=== PATIENT | male | born 1965 | race Caucasian/White ===

== ENCOUNTER 2016-11-25 15:28 | Emergency (ER) | payer MEDICAID ==
[~2016-11-25] VITALS: Ht 182.9 cm; Wt 68.0 kg
[~2016-11-25 15:28] MED LIST: SPIRIVA18 MCG INH; SUBOXONE 8 MG-1 EACH SL; Sodium Chloride 500ML 500 ML IV ONE
[2016-11-25] MEDS ORDERED: Solu-MEDROL 125mg Inj IVP ONE (15:30)
[2016-11-25] MEDS: Albuterol ud Inhalation HHN SCH ×2 (15:33→16:41)
[2016-11-25] MEDS: Ipratropium 0.02% Inh Soln 2.5ml UD HHN SCH ×2 (15:33→16:41)
[2016-11-25 15:46] VITALS: BP 129/96
[2016-11-25 15:47] LABS: BASOPHILS % (AUTO) 1.5 % (0.0-2.0); EOSINOPHILS % (AUTO) 8.5 % (0.0-3.0); LYMPHOCYTES % (AUTO) 37.9 % (20.0-45.0); MEAN CORPUSCULAR HEMOGLOBIN 29.5 PG (27.0-31.0); MEAN CORPUSCULAR HGB CONC 32.3 G/DL (32.0-36.0); MEAN CORPUSCULAR VOLUME 92 FL (80-99); MEAN PLATELET VOLUME 6.2 FL (6.5-10.1); MONOCYTES % (AUTO) 8.3 % (1.0-10.0); NEUTROPHILS % (AUTO) 43.8 % (45.0-75.0); PLATELET COUNT 238 K/UL (150-450); RED CELL DISTRIBUTION WIDTH 12.1 % (11.6-14.8); WHITE BLOOD COUNT 9.7 K/UL (4.8-10.8)
[2016-11-25 16:05] LABS: ALANINE AMINOTRANSFERASE 23 U/L (3-41); ALBUMIN/GLOBULIN RATIO 1.3 (1.0-2.7); ANION GAP 12 (5-15); ASPARTATE AMINO TRANSFERASE 35 U/L (5-40); CALCIUM 8.8 mg/dL (8.6-10.2); CARBON DIOXIDE 28 mEQ/L (20-30); CHLORIDE 98 mEQ/L (98-107); CREATININE 0.7 mg/dL (0.7-1.2); GLOMERULAR FILTRATION RATE > 60 mL/min (>60); HEMOLYSIS 4; POTASSIUM 3.6 mEQ/L (3.4-4.9); SODIUM 138 mEQ/L (135-145); TOTAL PROTEIN 6.7 g/dL (6.6-8.7)
[2016-11-25 16:18] LABS: TROPONIN I < 0.30 ng/mL (<=0.30)
[2016-11-25] MEDS ORDERED: PREDNISONE20 MG ORAL (16:27)
[2016-11-25] MEDS ORDERED: AMOXICILLIN500 MG ORAL (16:27)
[2016-11-25 16:30] LABS: BILIRUBIN,DIRECT 0.2 mg/dL (0.1-0.3)
[2016-11-25 16:44] VITALS: BP 120/87
[2016-11-25 16:48] VITALS: BP 120/87
--- NOTE | 2016-11-25 17:08 | Diagnostic Imaging Report ---
Indication: Dyspnea Comparison: None A single view chest radiograph was obtained. Findings: Lungs are hyperexpanded. No infiltrate is seen. Bones are osteopenic. Heart size is within normal limits. Impression: No acute findings
--- NOTE | 2016-11-25 22:42 | Emergency Room Report ---
History of Present Illness General Chief Complaint: Upper Respiratory Illness Source: Patient Present Illness HPI 51-year-old male presents ED for shortness of breath. Per EMS patient has been wheezing since last night. Patient has history of COPD. Patient was given breathing treatment states he feels a little better. Denies fevers or chills. Denies cough. States he recently quit smoking. Not on home O2. States that he was working in the garage with a lot of dust which likely triggered his COPD. Denies fevers or chills. Denies chest pain. No other aggravating relieving factors. Denies any other associated symptoms Allergies: Coded Allergies: No Known Allergies (Unverified , 11/25/16) Patient History Past Medical History: COPD Past Surgical History: none Pertinent Family History: none Social History: Denies: smoking, alcohol use, drug use Immunizations: UTD Reviewed Nursing Documentation: PMH: Agreed, PSxH: Agreed Nursing Documentation-PMH Past Medical History: No History, Except For Hx COPD: Yes Review of Systems All Other Systems: negative except mentioned in HPI Physical Exam Vital Signs Date Time Temp Pulse Resp B/P (MAP) Pulse Ox O2 Delivery O2 Flow Rate FiO2 11/25/16 15:15 97.0 113 27 164/97 99 Nasal Cannula 2.0 Sp02 EP Interpretation: reviewed, normal General Appearance: no apparent distress, alert, GCS 15, non-toxic Head: normocephalic, atraumatic Eyes: bilateral eye normal inspection, bilateral eye PERRL ENT: hearing grossly normal, normal pharynx, no angioedema, normal voice Neck: full range of motion, supple/symm/no masses Respiratory: speaking full sentences, wheezing Cardiovascular #1: regular rate, rhythm, no edema Cardiovascular #2: 2+ carotid (R), 2+ carotid (L), 2+ radial (R), 2+ radial (L) , 2+ dorsalis pedis (R), 2+ dorsalis pedis (L) Gastrointestinal: normal bowel sounds, non tender, soft, non-distended, no guarding, no rebound Rectal: deferred Genitourinary: normal inspection, no CVA tenderness Musculoskeletal: back normal, gait/station normal, normal range of motion, non- tender Neurologic: alert, oriented x3, responsive, motor strength/tone normal, sensory intact, speech normal Psychiatric: judgement/insight normal, memory normal, mood/affect normal, no suicidal/homicidal ideation Reflexes: 3+ bicep (R), 3+ bicep (L), 3+ tricep (R), 3+ tricep (L), 3+ knee (R) , 3+ knee (L) Skin: normal color, no rash, warm/dry, well hydrated Lymphatic: no adenopathy Medical Decision Making Diagnostic Impression: Primary Impression: COPD exacerbation ER Course Hospital Course 51-year-old presents ED complaining of shortness of breath/wheezing Differential diagnoses include: URI, bronchitis, asthma/COPD, pneumonia Clinical course Patient placed on stretcher. After initial history, physical exam reveals an elderly male in no acute distress. Bilateral TM unremarkable. No pharyngeal erythema. No tonsillar exudates. No lymphadenopathy. Reduced breath sounds and wheezing I ordered labs, IV fluids, EKG, chest x-ray, and pleasant treatment, Solu-Medrol Labs reviewed-no leukocytosis noted, hemoglobin/hematocrit stable, electrolytes okay EKG - NSR, no acute ischemic changes interpreted by me Chest x-ray shows hyperinflated lungs On reassessment patient states he feels better. Patient can be safely discharged to home with outpatient therapy. Patient agrees with plan. Diagnosis - COPD exacerbation Stable and discharged home with prescriptions for amoxicillin, prednisone. Instructed to followup with PMD. Return to ED if symptoms recur or worsen Labs Test 11/25/16 15:35 White Blood Count 9.7 K/UL (4.8-10.8) Red Blood Count 4.30 M/UL (4.70-6.10) Hemoglobin 12.7 G/DL (14.2-18.0) Hematocrit 39.3 % (42.0-52.0) Mean Corpuscular Volume 92 FL (80-99) Mean Corpuscular Hemoglobin 29.5 PG (27.0-31.0) Mean Corpuscular Hemoglobin Concent 32.3 G/DL (32.0-36.0) Red Cell Distribution Width 12.1 % (11.6-14.8) Platelet Count 238 K/UL (150-450) Mean Platelet Volume 6.2 FL (6.5-10.1) Neutrophils (%) (Auto) 43.8 % (45.0-75.0) Lymphocytes (%) (Auto) 37.9 % (20.0-45.0) Monocytes (%) (Auto) 8.3 % (1.0-10.0) Eosinophils (%) (Auto) 8.5 % (0.0-3.0) Basophils (%) (Auto) 1.5 % (0.0-2.0) Sodium Level 138 mEQ/L (135-145) Potassium Level 3.6 mEQ/L (3.4-4.9) Chloride Level 98 mEQ/L (98-107) Carbon Dioxide Level 28 mEQ/L (20-30) Anion Gap 12 (5-15) Blood Urea Nitrogen 6 mg/dL (7-23) Creatinine 0.7 mg/dL (0.7-1.2) Estimat Glomerular Filtration Rate > 60 mL/min (>60) Glucose Level 95 mg/dL (74-106) Calcium Level 8.8 mg/dL (8.6-10.2) Total Bilirubin 1.4 mg/dL (0.0-1.2) Direct Bilirubin 0.2 mg/dL (0.1-0.3) Aspartate Amino Transf (AST/SGOT) 35 U/L (5-40) Alanine Aminotransferase (ALT/SGPT) 23 U/L (3-41) Alkaline Phosphatase 66 U/L (40-129) Total Creatine Kinase 307 U/L (38-174) Creatine Kinase MB 3.0 ng/mL (< 6.7) Creatine Kinase MB Relative Index 0.9 Troponin I < 0.30 ng/mL (<=0.30) Pro-B-Type Natriuretic Peptide 67 pg/mL (0-125) Total Protein 6.7 g/dL (6.6-8.7) Albumin 3.9 g/dL (3.5-5.2) Globulin 2.8 g/dL Albumin/Globulin Ratio 1.3 (1.0-2.7) EKG Diagnostic Results Rate: normal Rhythm: NSR ST Segments: no acute changes ASA given to the pt in ED: No Rhythm Strip Diag. Results EP Interpretation: yes Rhythm: NSR, no PVC's, no ectopy Chest X-Ray Diagnostic Results Chest X-Ray Diagnostic Results : Chest X-Ray Ordered: Yes # of Views/Limited/Complete: 1 View Indication: Shortness of Breath EP Interpretation: Yes Interpretation: no consolidation, no effusion, no pneumothorax, no acute cardiopulmonary disease Impression: Other - hyperinflated lungs. copd Electronically Signed by: Electronically signed by Titi Patel MD Last Vital Signs Date Time Temp Pulse Resp B/P (MAP) Pulse Ox O2 Delivery O2 Flow Rate FiO2 11/25/16 16:48 97.0 90 17 120/87 97 Room Air 2.0 Status: improved Disposition: HOME, SELF-CARE Condition: Stable Scripts Amoxicillin* (AMOXIL*) 500 Mg Capsule 500 MG ORAL THREE TIMES A DAY, #21 CAP Prov: TITI PATEL M.D. 11/25/16 Prednisone* (PREDNISONE*) 20 Mg Tablet 40 MG ORAL DAILY, #10 TAB Prov: TITI PATEL M.D. 11/25/16 Referrals: NOT CHOSEN IPA/,REFERRING (PCP) Patient Instructions: Chronic Obstructive Pulmonary Disease Exacerbation, Easy- to-Read TITI PATEL M.D. Nov 25, 2016 22:42
--- NOTE | 2016-12-02 23:29 | Cardiology Report ---
APPROVED REPORT EKG Measurement Heart [id number] Sinus tachycardia Possible Anterior infarct, age undetermined Abnormal ECG
== END 2016-11-25 17:34 | disposition home or self-care (01) ==
LOC: EDBD 15:28 → EMR 15:43
DX: J44.1 Chronic obstructive pulmonary disease with (acute) exacerbation (principal)
CPT/HCPCS: 36415; 71010; 80053; 82248; 82550; 82553; 83880; 84484; 85025; 93005; 94640; 96361; 96374; 99284; J2930; J7040

== ENCOUNTER 2016-12-10 13:59 | Inpatient (IN) | payer MEDICAID ==
[~2016-12-10] VITALS: Ht 182.9 cm; Wt 61.7 kg
[~2016-12-10 13:59] MED LIST changes: +AMOXICILLIN500 MG ORAL; +PREDNISONE20 MG ORAL; -Sodium Chloride 500ML 500 ML IV ONE
[2016-12-10 14:10] VITALS: BP 127/76
[2016-12-10] MEDS: Albuterol ud Inhalation HHN SCH ×3 (14:40→15:06)
[2016-12-10] MEDS: Ipratropium 0.02% Inh Soln 2.5ml UD HHN SCH ×3 (14:40→15:06)
--- NOTE | 2016-12-10 15:33 | Emergency Room Report ---
History of Present Illness General Chief Complaint: Dyspnea/Respdistress Source: Patient, Medical Record Present Illness HPI 51-year-old male presents ED for evaluation. Patient states starting today he feels short of breath and wheezing. Has history of COPD. Uses inhaler at home and states he feels somewhat better. Admits to dry cough. Denies fevers or chills. Denies chest pain. Denies sick contacts or recent travel. No other aggravating relieving factors. Denies any other associated symptoms Allergies: Coded Allergies: No Known Allergies (Unverified , 11/25/16) Patient History Past Medical History: COPD Past Surgical History: none Pertinent Family History: none Social History: Denies: smoking, alcohol use, drug use Immunizations: UTD Reviewed Nursing Documentation: PMH: Agreed, PSxH: Agreed Nursing Documentation-PMH Past Medical History: No History, Except For Hx COPD: Yes Review of Systems All Other Systems: negative except mentioned in HPI Physical Exam Vital Signs Date Time Temp Pulse Resp B/P (MAP) Pulse Ox O2 Delivery O2 Flow Rate FiO2 12/10/16 14:06 97.9 92 18 127/76 94 Room Air Sp02 EP Interpretation: reviewed, normal General Appearance: no apparent distress, alert, GCS 15, non-toxic Head: normocephalic, atraumatic Eyes: bilateral eye normal inspection, bilateral eye PERRL ENT: hearing grossly normal, normal pharynx, no angioedema, normal voice Neck: full range of motion, supple/symm/no masses Respiratory: chest non-tender, normal breath sounds, speaking full sentences, wheezing Cardiovascular #1: regular rate, rhythm, no edema Cardiovascular #2: 2+ carotid (R), 2+ carotid (L), 2+ radial (R), 2+ radial (L) , 2+ dorsalis pedis (R), 2+ dorsalis pedis (L) Gastrointestinal: normal bowel sounds, non tender, soft, non-distended, no guarding, no rebound Rectal: deferred Genitourinary: normal inspection, no CVA tenderness Musculoskeletal: back normal, gait/station normal, normal range of motion, non- tender Neurologic: alert, oriented x3, responsive, motor strength/tone normal, sensory intact, speech normal Psychiatric: judgement/insight normal, memory normal, mood/affect normal, no suicidal/homicidal ideation Reflexes: 3+ bicep (R), 3+ bicep (L), 3+ tricep (R), 3+ tricep (L), 3+ knee (R) , 3+ knee (L) Skin: normal color, no rash, warm/dry, well hydrated Lymphatic: no adenopathy Medical Decision Making Diagnostic Impression: Primary Impression: COPD exacerbation ER Course Hospital Course 51-year-old M presenting to ED with SOB. h/o COPD Differential diagnoses include: Pneumonia, CHF exacerbation, pneumothorax, fluid overload Clinical course Patient placed on stretcher. On dog daycare provider with stable vitals. After initial history and physical, I ordered nebulizer treatments. I ordered labs, IV fluids, EKG, chest x-ray, blood cultures, UA. Labs - no leukocytosis, hb/hct stable, electrolytes ok, trop negative CXR - hyperinflated lungs. no infiltrates EKG - NSR no acute ischemic changes interpreted by me After multiple breathing treatments patient continues to feel short of breath. abx given Case discussed with Dr. Mayer and he agreed to the patient to his service for further care and support I feel this is a highly complex case requiring extensive working including EKG/ Rhythm strip, Xray/CT/US, Blood/urine lab work, repeat exams while in ED, and administration of strong opiates/narcotics for pain control, admission to hospital or close patient follow up. Diagnosis - COPD exacerbation Patient admitted to telemetry in serious condition Labs Test 12/10/16 16:20 White Blood Count 9.6 K/UL (4.8-10.8) Red Blood Count 4.38 M/UL (4.70-6.10) Hemoglobin 13.0 G/DL (14.2-18.0) Hematocrit 41.4 % (42.0-52.0) Mean Corpuscular Volume 95 FL (80-99) Mean Corpuscular Hemoglobin 29.7 PG (27.0-31.0) Mean Corpuscular Hemoglobin Concent 31.4 G/DL (32.0-36.0) Red Cell Distribution Width 12.7 % (11.6-14.8) Platelet Count 293 K/UL (150-450) Mean Platelet Volume 5.9 FL (6.5-10.1) Neutrophils (%) (Auto) 53.5 % (45.0-75.0) Lymphocytes (%) (Auto) 23.3 % (20.0-45.0) Monocytes (%) (Auto) 8.0 % (1.0-10.0) Eosinophils (%) (Auto) 14.4 % (0.0-3.0) Basophils (%) (Auto) 0.9 % (0.0-2.0) Troponin I 0.001 ng/mL (0.000-0.056) EKG Diagnostic Results Rate: normal Rhythm: NSR ST Segments: no acute changes ASA given to the pt in ED: No Rhythm Strip Diag. Results EP Interpretation: yes Rhythm: NSR, no PVC's, no ectopy Chest X-Ray Diagnostic Results Chest X-Ray Diagnostic Results : Chest X-Ray Ordered: Yes # of Views/Limited/Complete: 1 View Indication: Shortness of Breath EP Interpretation: Yes Interpretation: no consolidation, no effusion, no pneumothorax, no acute cardiopulmonary disease, other - hyperinflated lungs Impression: Other - COPD Electronically Signed by: Electronically signed by Titi Patel MD Last Vital Signs Date Time Temp Pulse Resp B/P (MAP) Pulse Ox O2 Delivery O2 Flow Rate FiO2 12/10/16 15:25 83 20 100 Room Air 12/10/16 14:06 97.9 127/76 Status: improved Disposition: ADMITTED INPATIENT Condition: Serious TITI PATEL M.D. Dec 10, 2016 15:33
[2016-12-10] MEDS ORDERED: Albuterol ud Inhalation HHN ONE (15:45)
[2016-12-10] MEDS ORDERED: Ipratropium 0.02% Inh Soln 2.5ml UD HHN ONE (15:45)
[2016-12-10 16:00] VITALS: BP 119/79
[2016-12-10 16:47] LABS: BASOPHILS % (AUTO) 0.9 % (0.0-2.0); EOSINOPHILS % (AUTO) 14.4 % (0.0-3.0); LYMPHOCYTES % (AUTO) 23.3 % (20.0-45.0); MEAN CORPUSCULAR HEMOGLOBIN 29.7 PG (27.0-31.0); MEAN CORPUSCULAR HGB CONC 31.4 G/DL (32.0-36.0); MEAN CORPUSCULAR VOLUME 95 FL (80-99); MEAN PLATELET VOLUME 5.9 FL (6.5-10.1); NEUTROPHILS % (AUTO) 53.5 % (45.0-75.0); PLATELET COUNT 293 K/UL (150-450); RED BLOOD COUNT 4.38 M/UL (4.70-6.10); RED CELL DISTRIBUTION WIDTH 12.7 % (11.6-14.8); WHITE BLOOD COUNT 9.6 K/UL (4.8-10.8)
[2016-12-10] MEDS ORDERED: cefTRIAXone 1 GM in NS 55 ML IVPB ONE (17:00)
[2016-12-10] MEDS ORDERED: Azithromycin 500 MG in NS 275 ML IV ONE (17:00)
[2016-12-10] MEDS ORDERED: NKM (17:29)
[2016-12-10] MEDS ORDERED: DALIRESP500 MCG PO (17:34)
[2016-12-10] MEDS ORDERED: LORATADINE10 M1 PO (17:34)
[2016-12-10] MEDS ORDERED: Azithromycin 500mg Inj IV ONE (17:51)
[2016-12-10 17:54] LABS: ALANINE AMINOTRANSFERASE 19 U/L (12-78); ANION GAP 8 mmol/L (5-15); ASPARTATE AMINO TRANSFERASE 29 U/L (15-37); CALCIUM 8.8 MG/DL (8.5-10.1); CARBON DIOXIDE 29 MMOL/L (21-32); CHLORIDE 101 MMOL/L (98-107); CKMB 3.2 NG/ML (0.0-3.6); CREATININE 0.8 MG/DL (0.55-1.30); GLOMERULAR FILTRATION RATE > 60 mL/min (>60); POTASSIUM 3.8 MMOL/L (3.5-5.1); SODIUM 138 MMOL/L (136-145); TOTAL PROTEIN 6.9 G/DL (6.4-8.2)
[2016-12-10 18:00] VITALS: BP 109/76
--- NOTE | 2016-12-10 18:13 | Diagnostic Imaging Report ---
Indication: SOB Technique: One view of the chest Comparison: 11/25/2016 Findings: The lungs are hyperinflated, consistent with COPD. There are upper lobe bullous changes as well. The heart size is normal. No acute infiltrates or effusions, or congestion. No significant interim change Impression: COPD. No definite acute process
[2016-12-10 18:22] VITALS: BP 148/88
[2016-12-10 18:56] LABS: APPEARANCE,URINE CLEAR; KETONES,URINE NEGATIVE (NEGATIVE); LEUKOCYTE ESTERASE ,URINE NEGATIVE (NEGATIVE); NITRITE,URINE NEGATIVE (NEGATIVE); PH,URINE 7 (4.5-8.0); PROTEIN,URINE NEGATIVE (NEGATIVE); UROBILINOGEN,URINE NORMAL MG/DL (0.0-1.0)
[2016-12-10 20:00] VITALS: BP 122/82
[2016-12-10] MEDS: Albuterol/Ipratropium 3ml neb HHN SCH (23:07)
[2016-12-10] MEDS ORDERED: NICODERM CQ1 EAC1 TD (23:48)
[2016-12-11] VITALS: BP 117/79
[2016-12-11] MEDS: Albuterol/Ipratropium 3ml neb HHN SCH ×6 (03:10→23:00)
[2016-12-11 04:00] VITALS: BP 140/86
[2016-12-11 08:16] VITALS: BP 141/88
[2016-12-11] MEDS: Solu-MEDROL 125mg Inj IVP SCH ×2 (09:00→19:57)
[2016-12-11] MEDS: Heparin 5000 units/ml inj SUBQ SCH ×2 (09:00→20:02)
[2016-12-11] MEDS: Azithromycin 250mg tab ORAL SCH (09:00)
[2016-12-11 12:00] VITALS: BP 124/82
[2016-12-11 16:00] VITALS: BP 116/78
[2016-12-11 16:51] LABS: APPEARANCE,URINE CLEAR; KETONES,URINE NEGATIVE (NEGATIVE); LEUKOCYTE ESTERASE ,URINE NEGATIVE (NEGATIVE); NITRITE,URINE NEGATIVE (NEGATIVE); PH,URINE 7 (4.5-8.0); PROTEIN,URINE NEGATIVE (NEGATIVE); UROBILINOGEN,URINE NORMAL MG/DL (0.0-1.0)
[2016-12-11] MEDS ORDERED: cefTRIAXone 1 GM in D5W 55 ML IVPB SCH (18:00)
--- NOTE | 2016-12-11 18:45 | Progress Note ---
DATE: 12/11/2016 MEDICINE PROGRESS NOTE SUBJECTIVE: The patient has less shortness of breath and congestion, but is not at baseline. He gets short of breath walking around the room. No fevers. No chills. OBJECTIVE: VITAL SIGNS: Blood pressure 124/82, oxygen saturation on room air 94% to 97%, pulse 80, and respiratory rate 20. Monitored sinus rhythm. LUNGS: Diminished breath sounds and rhonchi, left greater than right. Few expiratory wheezes. CARDIOVASCULAR: Regular rhythm and rate. Normal S1 and S2. ABDOMEN: Soft. EXTREMITIES: No edema. IMPRESSION: 1. Chronic obstructive pulmonary disease exacerbation. 2. Acute bronchospasm. 3. Chronic bronchitis. 4. History of nicotine abuse, quit six weeks ago. PLAN: 1. Nicotine patch. 2. Continue steroids intravenously, inhaled bronchodilators, and empiric antibiotics. 3. Not stable for outpatient care yet. 4. Repeat chest x-ray will be obtained with two views . Clinton Mayer M.D. DR: ANDREAS JOB#: [id number] CC:
--- NOTE | 2016-12-11 18:45 | History and Physical Report ---
DATE OF ADMISSION: 12/10/2016 REASON FOR ADMISSION: COPD exacerbation. HISTORY OF PRESENT ILLNESS: This is a 51-year-old white male with a longstanding history of nicotine abuse. He only quit about six weeks ago and has been on a NicoDerm patch. He has had one hospitalization overnight for chronic obstructive pulmonary disease in the past. He recently completed a steroid taper and oral course of antibiotics. Last evening, he became increasingly congested, short of breath, and was coughing again. He uses inhalers, but did not improve adequately and came to the emergency room. He was noted to have significant bronchospasm and hospitalization initiated. PAST MEDICAL HISTORY: Otherwise unremarkable. MEDICATIONS: Prior to admission, reviewed and reconciled. ALLERGIES: None. SOCIAL HISTORY: A 60+ pack year smoker. No alcohol or substance abuse. REVIEW OF SYSTEMS: Recently had an abnormal urine study suggestive of chlamydia and doctor requested repeat study. No urinary symptoms at this time. All systems are otherwise negative. PHYSICAL EXAMINATION: VITAL SIGNS: Afebrile. Blood pressure 127/76, pulse 92, respirations 18, and oxygen saturation on room air 94%. HEENT: Conjunctivae are pink. Oropharynx clear. NECK: Supple. LUNGS: Coarse breath sounds, diminished at the left. Few expiratory wheezing noted as well. No accessory muscle use. CARDIAC: Regular. Normal S1 and S2 with no murmur. ABDOMEN: Soft and nontender. EXTREMITIES: Without edema, clubbing, or cyanosis. LABORATORY AND DIAGNOSTIC DATA: Chest x-ray, hyperinflation. EKG, sinus rhythm with no abnormality. Laboratories, reviewed and unremarkable. IMPRESSION: 1. Acute bronchospasm. 2. Chronic obstructive pulmonary disease with acute exacerbation. 3. History of nicotine abuse. PLAN: 1. Inhaled bronchodilators. 2. Intravenous steroids. 3. Nasal oxygen. 4. Empiric antibiotics. 5. Nicotine patch. 6. Followup chest x-ray. Clinton Mayer M.D. DR: ANDREAS JOB#: [id number] CC:
[2016-12-11 20:04] VITALS: BP 144/80
[2016-12-12] VITALS: BP 131/88
[2016-12-12] MEDS: Albuterol/Ipratropium 3ml neb HHN SCH ×4 (03:00→15:10)
[2016-12-12 04:00] VITALS: BP 125/86
[2016-12-12 08:00] VITALS: BP 132/87
[2016-12-12] MEDS: Azithromycin 250mg tab ORAL SCH (09:05)
[2016-12-12] MEDS: Solu-MEDROL 125mg Inj IVP SCH (09:06)
[2016-12-12] MEDS: Heparin 5000 units/ml inj SUBQ SCH (09:18)
[2016-12-12 12:00] VITALS: BP 141/90
[2016-12-12 16:00] VITALS: BP 129/82
--- NOTE | 2016-12-12 17:33 | Cardiology Report ---
APPROVED REPORT EKG Measurement Heart [id number] Normal sinus rhythm with sinus arrhythmia Possible Left atrial enlargement Anterolateral infarct, age undetermined Abnormal ECG
[2016-12-12] MEDS ORDERED: cefTRIAXone 1 GM in D5W 55 ML IVPB SCH (18:00)
--- NOTE | 2016-12-13 08:30 | Diagnostic Imaging Report ---
Indication: COUGH Technique: Two views of the chest Comparison: 12/10/2016 Findings: Lungs are hyperinflated. No acute infiltrates. No effusions. No congestion. The heart size is normal. Impression: COPD No acute process
--- NOTE | 2016-12-14 04:30 | Discharge Summary ---
DATE OF ADMISSION: 12/10/2016 DATE OF DISCHARGE: 12/12/2016 INTERNAL MEDICINE PROGRESS NOTE AND DISCHARGE SUMMARY DISPOSITION: Home. CONDITION: Stable. FOLLOWUP: Dr. Mayer. ACTIVITY: Ad-aileen. DIET: Regular. DISCHARGE MEDICATIONS: Listed on discharge medication list. PHYSICAL EXAMINATION: VITAL SIGNS: On discharge, blood pressure 129/82, pulse 74, respiratory rate 18, afebrile, and oxygen saturation 96% on room air. HEENT: Oral cavity clear with no thrush. LUNGS: Coarse breath sounds. No wheezing. NECK: No adenopathy. CARDIAC: Regular. No murmur. ABDOMEN: Soft. EXTREMITIES: No edema. HOSPITAL COURSE: This is a 51-year-old male with COPD and heavy smoking history, who quit about six weeks ago, presented to the hospital with progressive wheezing and shortness of breath refractory to inhaled bronchodilators at home. The patient was admitted to the cardiac monitored unit. He was started on IV steroids, empiric antibiotics, and had inhaled bronchodilator therapy continued. Chest radiograph, PA and lateral was negative during his hospital stay. Urine studies were normal and laboratory studies were unremarkable. The patient improved with the treatment noted above and he was discharged with a prolonged steroid taper regimen in addition to continuing his usual inhalation therapies for bronchodilation. He had completed three days of antibiotics and no additional therapy was planned since there was no evidence of acute pulmonary infection seen. The patient was also continuing his nicotine patch to help ovoid him having urge to resume smoking. FINAL DIAGNOSES: 1. Chronic obstructive pulmonary disease exacerbation. 2. Acute bronchospasm. 3. History of nicotine abuse. Clinton Mayer M.D. DR: SYLVESTER JOB#: [id number] CC:
== END 2016-12-12 18:24 | disposition home or self-care (01) | DRG 140 ==
LOC: EMR 15:20 → 2E 16:02 → EDBEDREQ 17:20 → 2E 18:21
DX: J44.1 Chronic obstructive pulmonary disease with (acute) exacerbation (principal); F17.200 Nicotine dependence, unspecified, uncomplicated; J98.01 Acute bronchospasm
CPT/HCPCS: 36415; 71010; 71020; 80053; 81003; 82550; 82553; 83880; 84484; 85025; 87040; 93005; 94640; 94664; 94760; 99285; J7620

== ENCOUNTER 2016-12-13 04:53 | Emergency (ER) | payer MEDICAID ==
[~2016-12-13] VITALS: Ht 182.9 cm; Wt 68.0 kg
[~2016-12-13 04:53] MED LIST changes: +DALIRESP500 MCG PO; +LORATADINE10 M1 PO; +NICODERM CQ1 EAC1 TD; +NKM
[2016-12-13] MEDS ORDERED: Solu-MEDROL 125mg Inj IVP ONE (05:00)
[2016-12-13] MEDS ORDERED: Albuterol ud Inhalation ONE (05:00)
[2016-12-13] MEDS ORDERED: Sodium Chloride 500ML 500 ML IV ONE (05:00)
[2016-12-13] MEDS ORDERED: Ipratropium 0.02% Inh Soln 2.5ml UD ONE (05:01)
[2016-12-13] MEDS: Albuterol ud Inhalation HHN SCH ×3 (05:05→05:36)
[2016-12-13] MEDS: Ipratropium 0.02% Inh Soln 2.5ml UD HHN SCH ×3 (05:05→05:36)
[2016-12-13 05:16] VITALS: BP 133/85
[2016-12-13 05:35] LABS: BASOPHILS % (AUTO) 0.9 % (0.0-2.0); EOSINOPHILS % (AUTO) 0.9 % (0.0-3.0); LYMPHOCYTES % (AUTO) 37.9 % (20.0-45.0); MEAN CORPUSCULAR HEMOGLOBIN 31.1 PG (27.0-31.0); MEAN CORPUSCULAR HGB CONC 32.7 G/DL (32.0-36.0); MEAN CORPUSCULAR VOLUME 95 FL (80-99); MEAN PLATELET VOLUME 6.5 FL (6.5-10.1); MONOCYTES % (AUTO) 10.6 % (1.0-10.0); NEUTROPHILS % (AUTO) 49.8 % (45.0-75.0); PLATELET COUNT 362 K/UL (150-450); RED BLOOD COUNT 4.43 M/UL (4.70-6.10); RED CELL DISTRIBUTION WIDTH 13.1 % (11.6-14.8)
[2016-12-13 05:49] LABS: REFLEX LACTIC ACID YES OR NO YES
[2016-12-13 06:14] LABS: ALANINE AMINOTRANSFERASE 37 U/L (12-78); ALBUMIN/GLOBULIN RATIO 1.1 (1.0-2.7); ANION GAP 9 mmol/L (5-15); ASPARTATE AMINO TRANSFERASE 42 U/L (15-37); CALCIUM 8.9 MG/DL (8.5-10.1); CARBON DIOXIDE 29 MMOL/L (21-32); CHLORIDE 100 MMOL/L (98-107); GLOMERULAR FILTRATION RATE > 60 mL/min (>60); POTASSIUM 3.4 MMOL/L (3.5-5.1); SODIUM 138 MMOL/L (136-145); TOTAL PROTEIN 7.4 G/DL (6.4-8.2)
[2016-12-13 06:22] VITALS: BP 120/75
--- NOTE | 2016-12-13 06:34 | Emergency Room Report ---
History of Present Illness General Chief Complaint: Dyspnea/Respdistress Source: Patient Present Illness HPI 51-year-old male presents ED for evaluation. Patient presents with shortness of breath. States it started just prior to arrival. Patient felt short of breath with difficulty breathing. Coughing. Patient tried to use his inhaler but states was not helping. Call 911. Upon arrival patient is Z-Anand. Patient states he is feeling much better. Patient has history of COPD. Patient states he was just discharged from this hospital and 10 hours prior. He says that he felt 100% better when he was discharged. Denies fevers or chills. Denies chest pain. No other aggravating relieving factors. Denies any other associated symptoms Allergies: Coded Allergies: No Known Allergies (Unverified , 11/25/16) Patient History Past Medical History: COPD Past Surgical History: other Pertinent Family History: none Social History: Denies: smoking, alcohol use, drug use Immunizations: UTD Reviewed Nursing Documentation: PMH: Agreed, PSxH: Agreed Nursing Documentation-PMH Past Medical History: No History, Except For Hx COPD: Yes - Emphysema Review of Systems All Other Systems: negative except mentioned in HPI Physical Exam Vital Signs Date Time Temp Pulse Resp B/P (MAP) Pulse Ox O2 Delivery O2 Flow Rate FiO2 12/13/16 04:59 97.9 97 20 147/107 99 Room Air 12/13/16 05:07 21 12/13/16 05:16 11.0 Sp02 EP Interpretation: reviewed, normal General Appearance: no apparent distress, alert, GCS 15, non-toxic Head: normocephalic, atraumatic Eyes: bilateral eye normal inspection, bilateral eye PERRL ENT: hearing grossly normal, normal pharynx, no angioedema, normal voice Neck: full range of motion, supple/symm/no masses Respiratory: chest non-tender, normal breath sounds, speaking full sentences, wheezing Cardiovascular #1: regular rate, rhythm, no edema Cardiovascular #2: 2+ carotid (R), 2+ carotid (L), 2+ radial (R), 2+ radial (L) , 2+ dorsalis pedis (R), 2+ dorsalis pedis (L) Gastrointestinal: normal bowel sounds, non tender, soft, non-distended, no guarding, no rebound Rectal: deferred Genitourinary: normal inspection, no CVA tenderness Musculoskeletal: back normal, gait/station normal, normal range of motion, non- tender Neurologic: alert, oriented x3, responsive, motor strength/tone normal, sensory intact, speech normal Psychiatric: judgement/insight normal, memory normal, mood/affect normal, no suicidal/homicidal ideation Reflexes: 3+ bicep (R), 3+ bicep (L), 3+ tricep (R), 3+ tricep (L), 3+ knee (R) , 3+ knee (L) Skin: normal color, no rash, warm/dry, well hydrated Lymphatic: no adenopathy Medical Decision Making Diagnostic Impression: Primary Impression: COPD exacerbation ER Course Hospital Course 51-year-old F presenting to ED with SOB. h/o COPD Differential diagnoses include: Pneumonia, CHF exacerbation, pneumothorax, fluid overload Clinical course Patient placed on stretcher. On personnel monitor with stable vitals. After initial history, physical exam reveals a middle-age male in no acute distress. Lungs with good breath sounds. Some mild wheezing noted. I discontinued CPAP. I ordered nebulizer treatments. I ordered labs, IV fluids, EKG, chest x-ray, blood cultures, UA. Labs - minimal leukocytosis noted, hemoglobin/hematocrit stable, electrolytes okay, troponins negative EKG - NSR, no acute changes interpreted by me CXR - hyperinflated lungs. no infiltrates On reassessment patient feels better wishes to be discharged. Does not want to be admitted. It is very possible that patient did not have in fact a COPD exacerbation but there was an anxiety component as well. Patient states he started coughing and felt short of breath but denied any chest tightness or symptoms consistent with wheezing I recommend close patient he followup the patient is not to be admitted I feel this is a highly complex case requiring extensive working including EKG/ Rhythm strip, Xray/CT/US, Blood/urine lab work, repeat exams while in ED, and administration of strong opiates/narcotics for pain control, admission to hospital or close patient follow up. Diagnosis - COPD exacerbation Stable and discharged to home. Continue home medications as directed. Followup with PMD. Return if symptoms recur or worsen Labs Test 12/13/16 05:00 White Blood Count 11.0 K/UL (4.8-10.8) Red Blood Count 4.43 M/UL (4.70-6.10) Hemoglobin 13.8 G/DL (14.2-18.0) Hematocrit 42.1 % (42.0-52.0) Mean Corpuscular Volume 95 FL (80-99) Mean Corpuscular Hemoglobin 31.1 PG (27.0-31.0) Mean Corpuscular Hemoglobin Concent 32.7 G/DL (32.0-36.0) Red Cell Distribution Width 13.1 % (11.6-14.8) Platelet Count 362 K/UL (150-450) Mean Platelet Volume 6.5 FL (6.5-10.1) Neutrophils (%) (Auto) 49.8 % (45.0-75.0) Lymphocytes (%) (Auto) 37.9 % (20.0-45.0) Monocytes (%) (Auto) 10.6 % (1.0-10.0) Eosinophils (%) (Auto) 0.9 % (0.0-3.0) Basophils (%) (Auto) 0.9 % (0.0-2.0) Sodium Level 138 MMOL/L (136-145) Potassium Level 3.4 MMOL/L (3.5-5.1) Chloride Level 100 MMOL/L (98-107) Carbon Dioxide Level 29 MMOL/L (21-32) Anion Gap 9 mmol/L (5-15) Blood Urea Nitrogen 14 mg/dL (7-18) Creatinine 1.0 MG/DL (0.55-1.30) Estimat Glomerular Filtration Rate > 60 mL/min (>60) Glucose Level 148 MG/DL (74-106) Lactic Acid Level 5.00 mmol/L (0.66-2.22) Calcium Level 8.9 MG/DL (8.5-10.1) Total Bilirubin 0.9 MG/DL (0.2-1.0) Aspartate Amino Transf (AST/SGOT) 42 U/L (15-37) Alanine Aminotransferase (ALT/SGPT) 37 U/L (12-78) Alkaline Phosphatase 79 U/L (46-116) Total Creatine Kinase 84 U/L (26-308) Creatine Kinase MB 2.3 NG/ML (0.0-3.6) Creatine Kinase MB Relative Index 2.7 Troponin I 0.000 ng/mL (0.000-0.056) Pro-B-Type Natriuretic Peptide 166 pg/mL (0-125) Total Protein 7.4 G/DL (6.4-8.2) Albumin 3.9 G/DL (3.4-5.0) Globulin 3.5 g/dL Albumin/Globulin Ratio 1.1 (1.0-2.7) EKG Diagnostic Results Rate: normal Rhythm: NSR ST Segments: no acute changes ASA given to the pt in ED: No Rhythm Strip Diag. Results EP Interpretation: yes Rhythm: NSR, no PVC's, no ectopy Chest X-Ray Diagnostic Results Chest X-Ray Diagnostic Results : Chest X-Ray Ordered: Yes # of Views/Limited/Complete: 1 View Indication: Shortness of Breath EP Interpretation: Yes Interpretation: no consolidation, no effusion, no pneumothorax, no acute cardiopulmonary disease Impression: No acute disease Electronically Signed by: Electronically signed by Titi Patel MD Last Vital Signs Date Time Temp Pulse Resp B/P (MAP) Pulse Ox O2 Delivery O2 Flow Rate FiO2 12/13/16 06:22 97.9 86 14 120/75 100 Room Air 11.0 21 Status: improved Disposition: HOME, SELF-CARE Condition: Stable Referrals: NON PHYSICIAN (PCP) Patient Instructions: Chronic Obstructive Pulmonary Disease Exacerbation TITI PATEL M.D. Dec 13, 2016 06:34
[2016-12-13 07:05] LABS: CKMB 2.3 NG/ML (0.0-3.6)
--- NOTE | 2016-12-13 09:57 | Diagnostic Imaging Report ---
Indication: SOB Technique: One view of the chest Comparison: 12/12/2016 Findings: The lungs are hyperinflated. There is upper lobe bullous change and scarring bilaterally, left greater than right. The heart size is normal. No acute infiltrates or effusions. No significant interim change Impression: Unchanged, over one day, findings as above.
--- NOTE | 2016-12-14 08:45 | Cardiology Report ---
APPROVED REPORT EKG Measurement Heart [id number] Normal sinus rhythm Cannot rule out Anterior infarct, age undetermined Abnormal ECG
== END 2016-12-13 06:36 | disposition home or self-care (01) ==
LOC: EDUNIT# 04:53 → EDBD 04:53 → EMR 05:05
DX: J44.1 Chronic obstructive pulmonary disease with (acute) exacerbation (principal)
CPT/HCPCS: 36415; 71010; 80053; 82550; 82553; 83605; 83880; 84484; 85025; 93005; 94640; 94664; 96361; 96374; 99284; J2930; J7040